=== PATIENT | female | born 1960 | race Caucasian/White ===

== ENCOUNTER 2024-03-26 10:39 | Day surgery (SDC) | payer BC ==
[2024-03-22 12:26] VITALS: BMI 27.4
[2024-03-22 12:41] LABS: Hematocrit 42.7 % (34.9-44.5); Hemoglobin 13.6 g/dL (12.0-15.5); Mean Corpuscular HGB CONC 31.9 g/dL (32.0-36.0); Mean Corpuscular Hemoglobin 31.5 pg (27.0-33.0); Mean Corpuscular Volume 98.8 fL (81.6-98.3); Mean Platelet Volume 8.5 fL (7.4-10.4); Platelet Count 260 10x3/uL (150-450); RBC Distribution Width 12.9 % (11.5-14.5); Red Blood Cell (RBC) Count 4.32 10x6/uL (3.90-5.03); White Blood Cell (WBC) Count 5.1 10x3/uL (3.5-10.5)
[2024-03-26] MEDS ORDERED: PROPOFOL 20 ML ONE (12:53)
[2024-03-26] MEDS ORDERED: Midazolam HCl 2 mg/2 ml Vial ONE (12:53)
[2024-03-26] MEDS ORDERED: Lidocaine 1% PF 5 ML VIAL ONE (12:53)
[2024-03-26] MEDS ORDERED: Ondansetron PF 4 MG/2 ML Vial ONE (12:53)
[2024-03-26] MEDS ORDERED: fentaNYL 50 mcg/mL 1 mL Vial ONE (12:53)
[2024-03-26] MEDS ORDERED: Dexamethasone 20 MG/5 ML VIAL ONE (12:53)
[2024-03-26] MEDS ORDERED: Ketorolac Tromethamine 30 MG (1 mL) VIAL ONE (12:54)
[2024-03-26] MEDS ORDERED: Vasopressin 20 UNITS/ML VIAL ONE (12:55)
[2024-03-26] MEDS ORDERED: CEFAZOLIN 2 GM VIAL ONE (13:03)
== END 2024-03-26 15:10 | disposition home or self-care (01) ==
LOC: CSHSDC 10:39
PROVIDERS: ATTEND Obstetrics & Gynecology
PROC: 0UB98ZZ Excision of Uterus, Via Natural or Artificial Opening Endoscopic (ICD-10-PCS; principal; 2024-03-26)
DX: N84.0 Polyp of corpus uteri (principal); Z85.3 Personal history of malignant neoplasm of breast; Z91.040 Latex allergy status; Z88.5 Allergy status to narcotic agent
CPT/HCPCS: 36415; 85027; 86850; 86900; 86901; 88305; J1100; J1885; J2250; J2405; J2704; J3010